=== PATIENT | male | born 1970 | race African-American/Black ===

== ENCOUNTER 2017-04-24 15:44 | Emergency (ER) | payer SELFPAY ==
[~2017-04-24] VITALS: Ht 188 cm; Wt 92.0 kg
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
== END 2017-04-24 16:50 | disposition left against medical advice (07) ==
LOC: NEDAMB 15:44
DX: Z53.21 Procedure and treatment not carried out due to patient leaving prior to being seen by health care provider (principal)